=== PATIENT | male | born 2000 | race African-American/Black ===

== ENCOUNTER 2021-01-28 13:34 | Emergency (ER) | payer SELFPAY ==
[2021-01-28 14:11] LABS: Urine Blood Negative (Negative); Urine Glucose Negative (Negative); Urine Protein Negative (Negative); Urine Specific Gravity 1.025 (1.005-1.030)
--- NOTE | 2021-01-28 14:56 | ER ---
Nurse's Notes [facility] Name: Sajan Alonzo Age: 20 yrs Sex: Male : 2000 Arrival Date: 01/28/2021 Time: 13:36 Bed 15 Private MD: Diagnosis: Penile pain, intermittent, resolved Presentation: 01/28 13:40 Chief complaint: Patient states: Pt stated, "I just want to make sure my gonorrhea is kg gone. I took a shot and all of my pills but sometimes when I wake up in the morning I have cloudy discharge, sometimes I have an odor sometimes. I dont know what it is and want to get it checked out.". Coronavirus screen: At this time, the client does not indicate any symptoms associated with coronavirus-19. Coronavirus screen: Vaccine status: Patient reports being unvaccinated. At this time, the client does not indicate any symptoms associated with coronavirus-19. Ebola Screen: Patient negative for fever greater than or equal to 101.5 degrees Fahrenheit, and additional compatible Ebola Virus Disease symptoms Patient denies exposure to infectious person. Patient denies travel to an Ebola-affected area in the 21 days before illness onset. Initial Sepsis Screen: Does the patient meet any 2 criteria? No. Patient's initial sepsis screen is negative. Does the patient have a suspected source of infection? No. Patient's initial sepsis screen is negative. Risk Assessment: Do you want to hurt yourself or someone else? Patient reports no desire to harm self or others. 13:40 Method Of Arrival: Ambulatory kg 13:40 Acuity: RENÉ 4 kg Triage Assessment: 13:44 General: Appears in no apparent distress. Behavior is calm, cooperative, appropriate kg for age. Pain: Denies pain. Historical: - Allergies: 13:44 No Known Allergies; kg - Home Meds: 13:44 None [Active]; kg - PMHx: 13:44 Anxiety; ADHD; Heart Attack; kg - PSHx: 13:44 Cardiac Ablation; kg - Immunization history:: Adult Immunizations not up to date, Client reports having NOT received the Covid vaccine. - Social history:: Smoking status: Patient reports the use of cigarette tobacco products, denies chronic smoking, but will smoke occasionally, Patient uses alcohol, weekly. Screenin:51 Abuse screen: Denies threats or abuse. Denies injuries from another. Nutritional aj2 screening: No deficits noted. Tuberculosis screening: No symptoms or risk factors identified. Fall Risk None identified. Assessment: 13:51 Reassessment: Patient appears in no apparent distress at this time. Patient and/or aj2 family updated on plan of care and expected duration. Pain level reassessed. Patient is alert, oriented x 3, equal unlabored respirations, skin warm/dry/pink. General: Appears in no apparent distress. comfortable, Behavior is calm, cooperative. Pain: Complains of pain in groin Pain does not radiate. Pain currently is 3 out of 10 on a pain scale. Quality of pain is described as dull, Pain began suddenly, Is intermittent, Alleviated by nothing. Aggravated by increased activity. Vital Signs: 13:40 BP 144 / 67; Pulse 98; Resp 18; Temp 98.6; Pulse Ox 100% on R/A; Weight 79.38 kg (R); kg Height 5 ft. 11 in. (180.34 cm) (R); Pain 0/10; 13:51 BP 144 / 67; Pulse 89; Resp 18; Temp 96.6; Pulse Ox 100% ; aj2 13:40 Body Mass Index 24.41 (79.38 kg, 180.34 cm) kg ED Course: 13:36 Patient arrived in ED. ds1 13:43 Triage completed. kg 13:48 Margot Jaffe is Primary Nurse. aj2 13:51 No apparent distress. Resting quietly. aj2 13:51 Patient has correct armband on for positive identification. aj2 13:51 No provider procedures requiring assistance completed. aj2 13:52 Neil Moran MD is Attending Physician. kdr 14:54 Joe Patel MD is Referral Physician. kdr Administered Medications: No medications were administered Outcome: 14:55 Discharge ordered by . kdr 15:15 Patient left the ED. es2 Signatures: Neil Moran MD MD kdr Agueda Fowler ds1 Inyd Ramirez, RN RN kg Margot Jaffe aj2 Dayana Ho RN RN es2
--- NOTE | 2021-01-28 14:56 | EDPHYS ---
Physician Documentation [facility] Name: Sajan Alonzo Age: 20 yrs Sex: Male : 2000 Arrival Date: 01/28/2021 Time: 13:36 Bed 15 Private MD: ED Physician Neil Moran HPI: 01/28 15:47 This 20 yrs old Black Male presents to ER via Ambulatory with complaints of Penile kdr Problem - Pain. 15:47 The patient presents with tenderness, Pain to the ventral aspect of his distal penis. kdr 19:12 Onset: The symptoms/episode began/occurred yesterday. Modifying factors: The symptoms kdr are alleviated by nothing, the symptoms are aggravated by nothing. Associated signs and symptoms: The patient has no apparent associated signs or symptoms. Severity of symptoms: At their worst the symptoms were very mild, in the emergency department the symptoms have resolved. Patient had gonorrhea last year and although the symptoms now are completely unlike he experienced at that time, he is just concerned that he may have recurrence of an STD. He denies though any actual symptoms of STD including discharge, lesions or pain in the appropriate areas. The patient has not recently seen a physician. Historical: - Allergies: 13:44 No Known Allergies; kg - Home Meds: 13:44 None [Active]; kg - PMHx: 13:44 Anxiety; ADHD; Heart Attack; kg - PSHx: 13:44 Cardiac Ablation; kg - Immunization history:: Adult Immunizations not up to date, Client reports having NOT received the Covid vaccine. - Social history:: Smoking status: Patient reports the use of cigarette tobacco products, denies chronic smoking, but will smoke occasionally, Patient uses alcohol, weekly. ROS: 19:12 Constitutional: Negative for fever, chills, and weight loss, Eyes: Negative for injury, kdr pain, redness, and discharge, Neck: Negative for injury, pain, and swelling, Cardiovascular: Negative for chest pain, palpitations, and edema, Respiratory: Negative for shortness of breath, cough, wheezing, and pleuritic chest pain, Back: Negative for injury and pain, : Negative for injury, bleeding, discharge, and swelling, MS/Extremity: Negative for injury and deformity, Skin: Negative for injury, rash, and discoloration, Neuro: Negative for headache, weakness, numbness, tingling, and seizure activity. 19:12 Abdomen/GI: Negative for abdominal pain, nausea, vomiting, diarrhea, and constipation. 19:12 Abdomen/GI: Positive for 19:12 : Positive for penile pain, Negative for urinary symptoms, urinary frequency, small amounts, hematuria, pelvic pain, flank pain, burning with urination, difficulty urinating, bladder incontinence, foul smelling urine, penile discharge, testicular pain Exam: 19:12 Constitutional: This is a well developed, well nourished patient who is awake, alert, kdr and in no acute distress. 19:12 : Male external genitalia: normal, Bladder: Sexual behavior: the patient is sexually active, and reports a single partner, method of control is none. Vital Signs: 13:40 BP 144 / 67; Pulse 98; Resp 18; Temp 98.6; Pulse Ox 100% on R/A; Weight 79.38 kg (R); kg Height 5 ft. 11 in. (180.34 cm) (R); Pain 0/10; 13:51 BP 144 / 67; Pulse 89; Resp 18; Temp 96.6; Pulse Ox 100% ; aj2 13:40 Body Mass Index 24.41 (79.38 kg, 180.34 cm) kg MDM: 14:55 Patient medically screened. kdr 19:12 Data reviewed: vital signs, nurses notes, lab test result(s), radiologic studies. kdr Counseling: I had a detailed discussion with the patient and/or guardian regarding: the historical points, exam findings, and any diagnostic results supporting the discharge/admit diagnosis, the need for outpatient follow up. 01/28 14:11 Order name: Urine Dipstick-Ancillary; Complete Time: 14:54 EDMS Administered Medications: No medications were administered Disposition Summary: 01/28/21 14:55 Discharge Ordered Location: Home kdr Problem: new kdr Symptoms: are resolved kdr Condition: Stable kdr Diagnosis - Penile pain, intermittent, resolved kdr Followup: kdr - With: Joe Patel MD - When: 2 - 3 days - Reason: Wound Recheck, Recheck today's complaints, Continuance of care, Re-evaluation by your physician Discharge Instructions: - Discharge Summary Sheet kdr Forms: - Medication Reconciliation Form kdr - Thank You Letter kdr - Blank Diagnosis Outline kdr Signatures: Dispatcher [employer] EDMS Cas Moranin, MD MD kdr Indy Ramirez, RN RN kg
[2021-01-28 15:33] VITALS: BP 144/67; O2SAT 100
[2021-01-28 15:34] VITALS: TEMP 96.6
== END 2021-01-28 15:15 | disposition home or self-care (01) ==
LOC: ER 13:34
DX: N48.89 Other specified disorders of penis (principal); F17.210 Nicotine dependence, cigarettes, uncomplicated; I25.2 Old myocardial infarction
CPT/HCPCS: 81003; 99281

== ENCOUNTER 2021-03-07 16:26 | Emergency (ER) | payer SELFPAY ==
--- NOTE | 2021-03-07 18:10 | EDPHYS ---
Physician Documentation [facility] Name: Sajan Alonzo Age: 20 yrs Sex: Male : 2000 Arrival Date: 03/07/2021 Time: 16:29 Bed 12 Private MD: ED Physician Amina Barrow HPI: 03/07 18:05 This 20 yrs old Black Male presents to ER via Ambulatory with complaints of Cold cp Symptoms. 18:05 The patient or guardian reports cough, that is intermittent, with productive sputum, cp that is green. 18:05 Onset: The symptoms/episode began/occurred 3 day(s) ago. cp 18:05 Associated signs and symptoms: Pertinent positives: rhinorrhea, sore throat, Pertinent cp negatives: diarrhea, fever, vomiting. Severity of symptoms: in the emergency department the symptoms are unchanged despite home interventions. Historical: - Allergies: 17:12 No Known Allergies; vg1 - Home Meds: 17:12 Vit C [Active]; vg1 - PMHx: 17:12 adhd; Anxiety; heart attack; Asthma; vg1 - PSHx: 17:12 Cardiac Ablation; vg1 - Immunization history:: Adult Immunizations up to date, Client reports having NOT received the Covid vaccine. - Social history:: Smoking status: Patient denies any tobacco usage or history of. ROS: 18:06 Eyes: Negative for injury, pain, redness, and discharge. cp 18:06 Constitutional: Negative for body aches, fever, poor PO intake. 18:06 ENT: Positive for sore throat, Negative for drainage from ear(s), ear pain, difficulty swallowing, difficulty handling secretions. 18:06 Respiratory: Positive for cough, "sounds productive", Negative for shortness of breath, wheezing. 18:06 Abdomen/GI: Negative for abdominal pain, nausea, vomiting, and diarrhea. 18:06 Neuro: Negative for headache. 18:06 All other systems are negative. Exam: 18:07 Head/Face: Normocephalic, atraumatic. cp 18:07 Constitutional: The patient appears in no acute distress, alert, awake, non-toxic, well developed, well nourished. 18:07 Eyes: Periorbital structures: appear normal, Conjunctiva: normal, no exudate, no injection, Lids and lashes: appear normal, bilaterally. 18:07 ENT: External ear(s): are unremarkable, Ear canal(s): are normal, clear, TM's: dullness, bilaterally, Nose: is normal, Mouth: Lips: moist, Oral mucosa: moist, Posterior pharynx: Airway: no evidence of obstruction, patent, Tonsils: no enlargement, no exudate, Uvula: midline, erythema, that is mild, exudate, is not appreciated. 18:07 Neck: Lymph nodes: no appreciated lymphadenopathy. 18:07 Chest/axilla: Inspection: normal, Palpation: is normal, no crepitus, no tenderness. 18:07 Cardiovascular: Rate: normal. 18:07 Respiratory: the patient does not display signs of respiratory distress, Respirations: normal, no use of accessory muscles, no retractions, labored breathing, is not present, Breath sounds: decreased breath sounds, are not appreciated, stridor, is not appreciated, + upper airway congestion. wheezing: is not appreciated. 18:07 Abdomen/GI: Exam negative for discomfort, distension, guarding, Inspection: abdomen appears normal. Vital Signs: 17:10 BP 132 / 75; Pulse 73; Resp 16; Temp 98.8; Pulse Ox 100% ; Weight 79.38 kg; Height 5 vg1 ft. 11 in. (180.34 cm); Pain 6/10; 18:20 Pulse 70; Resp 15; Pulse Ox 100% ; jl7 17:10 Body Mass Index 24.41 (79.38 kg, 180.34 cm) vg1 MDM: 18:00 Patient medically screened. cp 18:10 Data reviewed: vital signs, nurses notes, lab test result(s). cp 18:10 Counseling: I had a detailed discussion with the patient and/or guardian regarding: the cp historical points, exam findings, and any diagnostic results supporting the discharge/admit diagnosis, lab results, to return to the emergency department if symptoms worsen or persist or if there are any questions or concerns that arise at home. ED course: Patient refused testing for COVID-19. No signs of respiratory distress, patient appears non-toxic. Will discharge to home for continued monitoring. 03/07 17:13 Order name: Flu; Complete Time: 18:11 vg1 03/07 17:13 Order name: Strep; Complete Time: 18:11 vg1 03/07 17:57 Order name: Throat Culture EDMS Administered Medications: No medications were administered Disposition Summary: 03/07/21 18:10 Discharge Ordered Location: Home cp Problem: new cp Symptoms: are unchanged cp Condition: Stable cp Diagnosis - Acute upper respiratory infection, unspecified cp Followup: cp - With: Private Physician - When: 2 - 3 days - Reason: Worsening of condition Discharge Instructions: - Discharge Summary Sheet cp - Upper Respiratory Infection, Adult cp - Form - Return To Work cp Forms: - Medication Reconciliation Form cp - Thank You Letter cp - Antibiotic Education cp - Prescription Opioid Use cp - Work release form tt3 Prescriptions: - Tessalon Perles 100 mg Oral Capsule - take 2 capsule by ORAL route every 8 hours As needed; 30 capsule; Refills: 0, cp Product Selection Permitted Addendum: 03/16/2021 05:26 Co-signature as Attending Physician, Amina kim a2 Signatures: Dispatcher [employer] EDMS Jd Gill PA PA cp Alzahri, Mohammad, MD MD ma2 Maribel Marsh RN RN vg1
--- NOTE | 2021-03-07 18:10 | ER ---
Nurse's Notes [facility] Name: Sajan Alonzo Age: 20 yrs Sex: Male : 2000 Arrival Date: 03/07/2021 Time: 16:29 Bed 12 Private MD: Diagnosis: Acute upper respiratory infection, unspecified Presentation: 03/07 17:10 Chief complaint: Patient states: Dizziness, headache, congestion, productive cough, and vg1 sore throat began about three days ago. Denies Diarrhea but states Nausea. Coronavirus screen: Vaccine status: Patient reports being unvaccinated. Ebola Screen: Patient negative for fever greater than or equal to 101.5 degrees Fahrenheit, and additional compatible Ebola Virus Disease symptoms. Initial Sepsis Screen: Does the patient meet any 2 criteria? No. Patient's initial sepsis screen is negative. Does the patient have a suspected source of infection? No. Patient's initial sepsis screen is negative. Risk Assessment: Do you want to hurt yourself or someone else? Patient reports no desire to harm self or others. Onset of symptoms was March 04, 2021. 17:10 Method Of Arrival: Ambulatory vg1 17:10 Acuity: RENÉ 4 vg1 Triage Assessment: 17:12 General: Appears in no apparent distress. comfortable, Behavior is calm, cooperative. vg1 Pain: Complains of pain in throat. Historical: - Allergies: 17:12 No Known Allergies; vg1 - Home Meds: 17:12 Vit C [Active]; vg1 - PMHx: 17:12 adhd; Anxiety; heart attack; Asthma; vg1 - PSHx: 17:12 Cardiac Ablation; vg1 - Immunization history:: Adult Immunizations up to date, Client reports having NOT received the Covid vaccine. - Social history:: Smoking status: Patient denies any tobacco usage or history of. Screenin:00 Abuse screen: Denies threats or abuse. Denies injuries from another. Nutritional jl7 screening: No deficits noted. Tuberculosis screening: No symptoms or risk factors identified. Fall Risk None identified. Assessment: 17:13 Reassessment: Pt refused to have Covid testing done. vg1 Vital Signs: 17:10 BP 132 / 75; Pulse 73; Resp 16; Temp 98.8; Pulse Ox 100% ; Weight 79.38 kg; Height 5 vg1 ft. 11 in. (180.34 cm); Pain 6/10; 18:20 Pulse 70; Resp 15; Pulse Ox 100% ; jl7 17:10 Body Mass Index 24.41 (79.38 kg, 180.34 cm) 1 ED Course: 16:29 Patient arrived in ED. ds1 17:12 Triage completed. vg1 17:12 Arm band placed on. vg1 17:16 Flu and/or RSV swab sent to lab. Strep swab sent to lab. vg1 17:29 Jd Gill PA is PHCP. cp 17:29 Amina Barrow MD is Attending Physician. cp 18:00 Patient has correct armband on for positive identification. Bed in low position. Call jl7 light in reach. Side rails up X 1. 18:16 Viji Ayon, RN is Primary Nurse. jl7 18:21 No provider procedures requiring assistance completed. Patient did not have IV access jl7 during this emergency room visit. Administered Medications: No medications were administered Outcome: 18:10 Discharge ordered by MD. cp 18:21 Discharged to home ambulatory. jl7 18:21 Condition: stable 18:21 Discharge instructions given to patient, Instructed on discharge instructions, follow up and referral plans. medication usage, Demonstrated understanding of instructions, follow-up care, medications, Prescriptions given X 1. 18:21 Patient left the ED. jl7 Signatures: Agueda Fowler ds1 Jd Gill PA PA cp Leal, Jahala, RN RN jl7 Maribel Marsh RN RN 1
[2021-03-07 18:31] VITALS: BP 132/75; TEMP 98.8; O2SAT 100
== END 2021-03-07 18:21 | disposition home or self-care (01) ==
LOC: ER 16:26
DX: J06.9 Acute upper respiratory infection, unspecified (principal)
CPT/HCPCS: 87070; 87081; 87804; 99283

== ENCOUNTER 2021-05-25 02:34 | Emergency (ER) | payer SELFPAY ==
[2021-05-25 03:15] LABS: Urine Blood Negative (Negative); Urine Glucose Negative (Negative); Urine Protein Negative (Negative); Urine Specific Gravity >=1.030 (1.005-1.030)
[2021-05-25] MEDS ORDERED: ACETAMINOPHEN 500 MG TAB ONE (03:21)
[2021-05-25] MEDS ORDERED: IBUPROFEN 400 MG TAB ONE (03:21)
[2021-05-25] MEDS ORDERED: IBUPROFEN 200 MG TAB PO ONE (03:21)
[2021-05-25] MEDS ORDERED: CEFTRIAXONE 500 MG/VIAL ONE (03:44)
[2021-05-25] MEDS ORDERED: LIDOCAINE 1% MPF 5 ML VIAL ONE (03:44)
--- NOTE | 2021-05-25 03:44 | ER ---
Nurse's Notes [facility] Name: Sajan Alonzo Age: 20 yrs Sex: Male : 2000 Arrival Date: 05/25/2021 Time: 02:35 Bed 11 Private MD: Diagnosis: Right testicular pain. Exposed to Chlamydia Presentation: 05/25 02:47 Chief complaint: Patient states: " STI, I have chlamydia. My girl told me. My balls tw5 hurt, and I can feel the pain going through my stomach. It feels like pins and needles and I have white discharge." He states that this has been occurring since Tuesday. Coronavirus screen: Vaccine status: Patient reports being unvaccinated. Ebola Screen: Patient negative for fever greater than or equal to 101.5 degrees Fahrenheit, and additional compatible Ebola Virus Disease symptoms Patient denies exposure to infectious person. Patient denies travel to an Ebola-affected area in the 21 days before illness onset. Initial Sepsis Screen: Does the patient meet any 2 criteria? No. Patient's initial sepsis screen is negative. Does the patient have a suspected source of infection? Yes: Other: STI. Risk Assessment: Do you want to hurt yourself or someone else? Patient reports no desire to harm self or others. Onset of symptoms is unknown. 02:47 Method Of Arrival: Ambulatory tw5 02:47 Acuity: RENÉ 4 tw5 Triage Assessment: 02:50 General: Appears uncomfortable, Behavior is calm, cooperative, appropriate for age. tw5 Pain: Pain currently is 6 out of 10 on a pain scale. Historical: - Allergies: 02:50 No Known Allergies; tw5 - Home Meds: 02:50 None [Active]; tw5 - PMHx: 02:50 adhd; Anxiety; Asthma; heart attack; tw5 - PSHx: 02:50 Cardiac Ablation; tw5 - Immunization history:: Flu vaccine is not up to date. - Social history:: Smoking status: Patient/guardian denies using tobacco, the patient reports quitting approximately 3 years ago. Screenin:14 Abuse screen: Denies threats or abuse. Nutritional screening: No deficits noted. sv1 Tuberculosis screening: No symptoms or risk factors identified. Fall Risk None identified. Assessment: 04:15 Reassessment: Cleared for discharge to home by the provider. All prescriptions and sv1 follow up instructions were explained to the patient . Vital Signs: 02:47 BP 120 / 63; Pulse 55; Resp 14; Temp 98.6(O); Pulse Ox 100% on R/A; Weight 79.38 kg; tw5 Height 5 ft. 11 in. (180.34 cm); Pain 6/10; 04:16 BP 120 / 75; Pulse 60 MON; Resp 18 S; Temp 98.0(O); Pulse Ox 100% on R/A; Pain 1/10; sv1 02:47 Body Mass Index 24.41 (79.38 kg, 180.34 cm) tw5 ED Course: 02:35 Patient arrived in ED. ja2 02:50 Triage completed. tw5 02:50 Arm band placed on right wrist. EKG completed in triage. Results shown to MD. EKG tw5 completed in triage. Results shown to MD. 02:56 Tray Kowalski MD is Attending Physician. pkshweta 02:57 Ronal Dee RN is Primary Nurse. sv1 03:16 GC (Marlo/Chl) Probe URINE Sent. sv1 03:42 US Scrotum Testicles In Process Unspecified. EDMS 04:14 Patient has correct armband on for positive identification. Bed in low position. Call sv1 light in reach. Side rails up X2. 04:14 No provider procedures requiring assistance completed. Patient did not have IV access sv1 during this emergency room visit. Administered Medications: 03:25 Drug: Tylenol 1000 mg Route: PO; sv1 03:41 Follow up: Response: No adverse reaction; Pain is decreased sv1 03:25 Drug: Motrin (ibuprofen) 600 mg Route: PO; sv1 03:40 Follow up: Response: No adverse reaction; Pain is decreased sv1 04:00 Drug: Rocephin (cefTRIAXone) 500 mg Route: IM; Site: right deltoid; sv1 Outcome: 03:43 Discharge ordered by . pkl 04:14 Discharged to home sv1 04:14 Condition: good 04:14 Discharge instructions given to patient. 04:18 Patient left the ED. sv1 Signatures: Dispatcher [employer] EDMS Tray Kowalski MD MD pkl Ana Luisa Gupta Tiffany tw5 Ronal Dee RN RN sv1
--- NOTE | 2021-05-25 03:45 | EDPHYS ---
Physician Documentation [facility] Name: Sajan Alonzo Age: 20 yrs Sex: Male : 2000 Arrival Date: 05/25/2021 Time: 02:35 Bed 11 Private MD: ED Physician Tray Kowalski HPI: 05/25 03:03 This 20 yrs old Black Male presents to ER via Ambulatory with complaints of STD pkl Exposure. 03:03 The patient presents with a possible STD exposure, symptoms include pain right pkl testicle. Onset: The symptoms/episode began/occurred 2 day(s) ago. Patient said he was exposed to his who was diagnosed with chlamydia. Historical: - Allergies: 02:50 No Known Allergies; tw5 - Home Meds: 02:50 None [Active]; tw5 - PMHx: 02:50 adhd; Anxiety; Asthma; heart attack; tw5 - PSHx: 02:50 Cardiac Ablation; tw5 - Immunization history:: Flu vaccine is not up to date. - Social history:: Smoking status: Patient/guardian denies using tobacco, the patient reports quitting approximately 3 years ago. ROS: 03:03 Eyes: Negative for injury, pain, redness, and discharge, ENT: Negative for injury, pkl pain, and discharge, Neck: Negative for injury, pain, and swelling, Cardiovascular: Negative for chest pain, palpitations, and edema, Respiratory: Negative for shortness of breath, cough, wheezing, and pleuritic chest pain, Abdomen/GI: Negative for abdominal pain, nausea, vomiting, diarrhea, and constipation, Back: Negative for injury and pain. 03:03 : Positive for testicular pain of the right tesicle. 03:03 MS/extremity: Negative for acute changes. 03:03 Skin: Negative for rash. Exam: 03:03 Head/Face: Normocephalic, atraumatic. Eyes: Pupils equal round and reactive to light, pkl extra-ocular motions intact. Lids and lashes normal. Conjunctiva and sclera are non-icteric and not injected. Cornea within normal limits. Periorbital areas with no swelling, redness, or edema. ENT: Nares patent. No nasal discharge, no septal abnormalities noted. Tympanic membranes are normal and external auditory canals are clear. Oropharynx with no redness, swelling, or masses, exudates, or evidence of obstruction, uvula midline. Mucous membranes moist. Neck: Trachea midline, no thyromegaly or masses palpated, and no cervical lymphadenopathy. Supple, full range of motion without nuchal rigidity, or vertebral point tenderness. No Meningismus. Chest/axilla: Normal chest wall appearance and motion. Nontender with no deformity. No lesions are appreciated. Cardiovascular: Regular rate and rhythm with a normal S1 and S2. No gallops, murmurs, or rubs. Normal PMI, no JVD. No pulse deficits. Respiratory: Lungs have equal breath sounds bilaterally, clear to auscultation and percussion. No rales, rhonchi or wheezes noted. No increased work of breathing, no retractions or nasal flaring. Abdomen/GI: Soft, non-tender, with normal bowel sounds. No distension or tympany. No guarding or rebound. No evidence of tenderness throughout. Back: No spinal tenderness. No costovertebral tenderness. Full range of motion. 03:03 : Male external genitalia: tenderness, of the right testis is noted, that is mild. 03:03 Musculoskeletal/extremity: Exam is negative for acute changes. pkl 03:03 Skin: Exam negative for rash. 03:03 Neuro: Orientation: is normal, Mentation: is normal, Cranial nerves: grossly normal, Motor: is normal, Gait: is steady. Vital Signs: 02:47 BP 120 / 63; Pulse 55; Resp 14; Temp 98.6(O); Pulse Ox 100% on R/A; Weight 79.38 kg; tw5 Height 5 ft. 11 in. (180.34 cm); Pain 6/10; 04:16 BP 120 / 75; Pulse 60 MON; Resp 18 S; Temp 98.0(O); Pulse Ox 100% on R/A; Pain 1/10; sv1 02:47 Body Mass Index 24.41 (79.38 kg, 180.34 cm) tw5 MDM: 02:56 Patient medically screened. pkl 03:41 Data reviewed: vital signs, nurses notes, lab test result(s). ED course: Advised to pkl follow up with PCP in 2 to 3 days. Patient understood instructions. 05/25 03:04 Order name: GC (Marlo/Chl) Probe URINE EDMS 05/25 03:15 Order name: Urine Dipstick-Ancillary; Complete Time: 03:36 EDMS 05/25 03:02 Order name: US Scrotum Testicles pkl 05/25 03:04 Order name: Urine Dipstick-Ancillary (obtain specimen); Complete Time: 03:16 lp1 Administered Medications: 03:25 Drug: Tylenol 1000 mg Route: PO; sv1 03:41 Follow up: Response: No adverse reaction; Pain is decreased sv1 03:25 Drug: Motrin (ibuprofen) 600 mg Route: PO; sv1 03:40 Follow up: Response: No adverse reaction; Pain is decreased sv1 04:00 Drug: Rocephin (cefTRIAXone) 500 mg Route: IM; Site: right deltoid; sv1 Disposition Summary: 05/25/21 03:43 Discharge Ordered Location: Home pkl Problem: new pkl Symptoms: are unchanged pkl Condition: Stable pkl Diagnosis - Right testicular pain. Exposed to Chlamydia pkl Followup: pkl - With: Private Physician - When: 2 - 3 days - Reason: Re-evaluation by your physician Discharge Instructions: - Discharge Summary Sheet pkl Forms: - Medication Reconciliation Form pkl - Thank You Letter pkl - Antibiotic Education pkl - Prescription Opioid Use pkl Prescriptions: - Doxycycline Monohydrate 100 mg Oral Tablet - take 1 tablet by ORAL route every 12 hours for 10 days; 20 tablet; Refills: 0, pkl Product Selection Permitted Signatures: Dispatcher [employer] Tray Baxter MD MD pkl Lakshmi Marti RN RN lp1 Divya Holder tw5 Ronal Dee RN RN sv1
--- NOTE | 2021-05-25 13:09 | RAD REPORT ---
EXAM DESCRIPTION: US - Scrotum Testicles - 05/25/2021 4:29 am CLINICAL HISTORY: The patient is 20 years old and is Male; pain right testis TECHNIQUE: Real-time ultrasound of the scrotum with color Doppler and image documentation. Real-ti me duplex ultrasound scan of the arterial and venous flow of the scrotal contents with color Doppler flow and spectral waveform analysis. COMPARISON: No relevant prior studies available. FINDINGS: Right testicle: 4.1 x 2.4 x 2.8 cm. No mass. No torsion. Left testicle: 3.7 x 1.9 x 2.4 cm. No mass. No torsion. Epididymides: Unremarkable right epididymis. Left epididymis, unremarkable as visualized. Scrotum: Small bilateral hydroceles. Small extratesticular simple cyst 4.3 mm along the inferior margin. IMPRESSION: 1. No testicular torsion. 2. Small bilateral hydroceles. 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 The interpreting r adiologist is fully responsible for the content of the report.
[2021-05-25 18:39] VITALS: O2SAT 100
[2021-05-25 18:43] VITALS: BP 120/75; TEMP 98
== END 2021-05-25 04:18 | disposition home or self-care (01) ==
LOC: ER 02:34
DX: Z20.2 Contact with and (suspected) exposure to infections with a predominantly sexual mode of transmission (principal)
CPT/HCPCS: 76870; 81003; 87490; 87590; 96372; 99283; J0696